=== PATIENT | male | born 1985 | race Caucasian/White ===

== ENCOUNTER → 2020-12-06 01:59 | Outpatient (CLI) | payer OTHER, SELFPAY ==
[2020-12-06 19:28] LABS: SARS-CoV-2 RNA PCR Positive
== END ==
PROVIDERS: PCP Family Medicine; Visit Provider Family Medicine
DX: U07.1 COVID-19 (principal)
CPT/HCPCS: C9803; U0003; U0005

== ENCOUNTER → 2021-02-27 01:59 | Outpatient (CLI) | payer OTHER, SELFPAY ==
[2021-02-28 18:54] LABS: SARS-CoV-2 RNA PCR Negative
== END ==
PROVIDERS: PCP Family Medicine; Visit Provider Family Medicine
DX: R68.89 Other general symptoms and signs (principal); Z20.822 Contact with and (suspected) exposure to COVID-19
CPT/HCPCS: C9803; U0003; U0005